=== PATIENT | male | born 1950 | race Caucasian/White ===

== ENCOUNTER → 2024-10-29 | Day surgery (SDC) | payer MEDICARE, BC ==
[2024-10-29] VITALS (11 sets, daily range): BP systolic 122–183; BP diastolic 59–84; PULSE 51–66; RESP 14–16; TEMP 98.1; O2SAT 92–96
[~2024-10-29] VITALS: Ht 167.6 cm; Wt 78.8 kg
[~2024-10-29] MED LIST: ATOR-2 PO; ATOR40TA PO; CHOL200077 PO; EZET10TA48 PO; HYDROcodone/acetaminophen 10/325mg tab PO PRN; HYDROcodone/acetaminophen 5mg/325mg tablet PO PRN; LIDOcaine 1% 30ml preserv. free vial ONE; LOP25T PO; METO-384 PO; fentaNYL/PF 50MCG/1 ML 2ML syringe ONE; heparin 1,000unit/ml 10ml vial 10 ML ONE; iohexol 350 MG/ML 50ML vial IV ONE; iohexol 350MG/ML 100ml bottle IV ONE; midazolam 1 mg/ML 2ml injection ONE; ondansetron/PF 4mg/2ml inj IV PRN; proCHLORperazine 10 MG/2 ml inj IV PRN; protamine sulfate 10mg/ml inj. ONE
[2024-10-29 10:21] LABS: PROTHROMBIN TIME 10.1 SECONDS (9.0-12.0)
[2024-10-29 10:23] LABS: ALBUMIN 3.9 G/DL (3.4-5.0); ANION GAP 9 (8-16); BASOPHILS # (AUTO) 0.1 X10'3 (0-0.2); BASOPHILS % (AUTO) 0.9 % (0-1); BLOOD UREA NITROGEN 10 MG/DL (7-18); BUN/CREATININE RATIO 14.9 (10.0-20.0); CALCIUM 8.9 MG/DL (8.5-10.1); CHLORIDE 106 MMOL/L (99-107); CREATININE 0.67 MG/DL (0.60-1.10); EOSINOPHILS # (AUTO) 0.3 X10'3 (0-0.9); EOSINOPHILS % (AUTO) 3.5 % (0-6); GLUCOSE 96 MG/DL (70-104); HEMATOCRIT 50.1 % (42.0-52.0); HEMOGLOBIN 16.9 g/dl (14.0-17.9); LYMPHOCYTES # (AUTO) 2.6 X10'3 (1.1-4.8); LYMPHOCYTES % (AUTO) 28.9 % (21-51); MEAN CORPUSCULAR HEMOGLOBIN 30.1 PG (27.0-31.0); MEAN CORPUSCULAR HGB CONC 33.7 g/dL (33.0-36.5); MEAN CORPUSCULAR VOLUME 89.2 FL (78-98); MEAN PLATELET VOLUME 9.4 FL (7.4-10.4); MONOCYTES # (AUTO) 0.8 X10'3 (0-0.9); MONOCYTES % (AUTO) 9.5 % (2-12); NEUTROPHILS # (AUTO) 5.1 X10'3 (1.8-7.7); NEUTROPHILS % (AUTO) 57.2 % (42-75); PLATELET COUNT 293 X10'3 (140-440); RED BLOOD COUNT 5.61 X10'6 (4.70-6.10); RED CELL DISTRIBUTION WIDTH 14.8 % (11.5-14.5); SODIUM 143 MMOL/L (135-145); TOTAL CARBON DIOXIDE 28.3 MMOL/L (24-32); WHITE BLOOD COUNT 8.8 X10'3 (4.5-11.0); eCRCL 86 ML/MIN; eGFR > 90 ML/MIN
[2024-10-29] MEDS: normal saline 1,000 ML IV SCH (11:07)
[2024-10-29] MEDS: sodium bicarbonate 1meq/ml syr 150 ML in dextrose 5%-water 1,000 ML IV ONE (11:08)
[2024-10-29] MEDS: diphenhydrAMINE 25mg capsule PO PRN (11:09)
--- NOTE | 2024-10-29 12:44 | ELECTROCARDIOGRAPH REPORT ---
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 Galdino Doss Measurements Intervals [place] Rate: 50 P: 54 UT: 184 QRS: 81 QRSD: 111 T: 23 QT: 449 QTc: 410 Interpretive Statements Atrial-paced complexes Borderline right axis deviation Electronically Signed On 10-29-2024 18:52:[address] Galdino Doss Please click the below link to view image of tracing.
--- NOTE | 2024-10-29 16:21 | CARDIOLOGY REPORT ---
DATE OF SERVICE: 10/29/2024 DICTATING PHYSICIAN: GARRETT MITCHELL DO CARDIAC CATHETERIZATION REPORT laboratory tester study number is [id number] [facility]. REFERRING PHYSICIAN: Christelle Núñez MD. CLINICAL HISTORY: This 74-year-old man has had previous 2-vessel CABG, receiving a CARTAGENA to the mid LAD and a saphenous vein graft to the right coronary. He has been experiencing angina, not responding to medical therapy, prompting this cardiac catheterization. PROCEDURES PERFORMED: * Left heart catheterization. * Left ventriculography. * Selective coronary arteriography. * Selective opacification of left internal mammary graft. * Selective opacification of saphenous vein graft. * Attempted right percutaneous coronary intervention. * Percutaneous arteriotomy closure (Perclose). * 60 minutes conscious sedation supervision DESCRIPTION OF PROCEDURE: The patient was sedated with fentanyl and Versed. He was then prepared and draped in the usual manner. The right inguinal area was infiltrated with 1% lidocaine. Using a micropuncture set and a Seldinger technique, a 7-Malawian sheath was placed in the common femoral artery. 3000 units of heparin were given. Left heart catheterization and left ventriculography were performed using a 6-Malawian pigtail catheter. Coronary arteriography was performed using 6-Malawian #4 left and right Tracy catheter. Left internal mammary graft opacification was accomplished using a 6-Malawian #4 right Tracy catheter. The saphenous vein graft previously placed to the distal right coronary was opacified using a 6-Malawian AR mod catheter. The 7-Malawian sheath was exchanged for an 8-Malawian sheath. An additional 7000 units of heparin were given. The right coronary was engaged with an 8-Malawian side-hold AL1 guiding catheter. Using first a Whisper wire and later a Choice PT2 guidewire, there was an attempt to pass a guidewire down through multiple high-grade stenoses in the right coronary; however, a lesion in the mid vessel was extremely tight and the wire would not pass this location, but appeared to go into a subintimal location. After multiple attempts with both wires, a decision was made to not pursue the problem any longer. The patient was completely stable through the procedure given the fact that he has got collateralization of the distal right coronary by way of both the circumflex and the grafted LAD. RESULTS: HEMODYNAMIC DATA: The left ventricular end-diastolic pressure was 12 mmHg. There was no gradient across the aortic valve. LEFT VENTRICULOGRAM: The left ventriculogram was technically adequate. Post PVC, the ejection fraction appeared to be 45%. The posterobasal and inferior wall segments were hypokinetic post PVC. CORONARY ARTERIOGRAPHY: The coronary arteriograms are technically satisfactory. The patient had a right dominant system. LEFT MAIN CORONARY ARTERY: The left main was a large unobstructed vessel, trifurcating into left anterior descending, intermediate, and circumflex coronary artery. LEFT ANTERIOR DESCENDING CORONARY ARTERY: The LAD was a medium-sized vessel with a 70% stenosis proximally with a similar stenosis just after the takeoff of the first major septal genetic counsellor. The mid LAD exhibited competitive flow with a patent CARTAGENA graft. INTERMEDIATE ARTERY: The intermediate was a small unobstructed vessel. CIRCUMFLEX CORONARY ARTERY: The circumflex was a large vessel proximally. There was a large first obtuse marginal and a medium-sized second obtuse marginal. The origin of the circumflex appeared to be narrowed by about 50%. Just after the takeoff of the first obtuse marginal, there was a 50% stenosis, followed by a 90% stenosis at the origin of the second obtuse marginal. RIGHT CORONARY ARTERY: The right coronary was a diffusely diseased vessel. There was 50% proximal stenosis. Further downstream, there was a 95% stenosis. Clearly in the mid vessel, there was a 90% stenosis and distally, but proximal to the posterior descending branch, there was another 90% stenosis. The distal right coronary was composed of a posterior descending branch and at least one small posterolateral branch. Bypass graft saphenous vein graft to the right coronary was occluded proximally. The CARTAGENA to mid LAD was patent and unobstructed, both in the graft and the hopland vessel beyond the distal anastomosis. CONCLUSIONS: 1. Severe obstructive coronary artery disease manifested as: A. At least a 70% proximal and mid LAD. B. At least 50% ostial narrowing of the circumflex with a 90% stenosis affecting the second obtuse marginal branch. The distal LCX provides collaterals to the distal right coronary. C. Multiple very high-grade stenoses in the proximal, mid, and distal right coronary. The distal right coronary, however, receives collaterals from the circumflex coronary and a CARTAGENA grafted distal LAD. 2. Bypass graft status as follows: A. Patent and unobstructed CARTAGENA to mid LAD. B. Occluded saphenous vein graft to right coronary artery. C. Left ventricular function appears to be reasonably good. There is posterobasal and inferior hypokinesis and the LVEF is approximately 45%. 3. Attempt at reopening the multiple lesions in the right coronary were unsuccessful given the difficulty in passing a very high-grade stenosis in the proximal vessel. PLAN: Elective CABG. GARRETT MITCHELL DO TID: [id number] RECEIPT: [id number] DARCY MTDD
--- NOTE | 2024-10-29 16:23 | CONSULTATION REPORT ---
Cardiac Consultation Report Providers to CC ~ Progress Note: Mr. Jorge is a very nice 74-year-old gentleman with a known history of coronary artery disease status post coronary artery bypass grafting x2 back in 2008. At that time he had a left internal mammary artery graft placed to the LAD with a vein graft to the distal right coronary artery. 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 Upon his recent visit with Dr. Doss's four check he was noted to have an abnormal stress test. This revealed the presence of inferior wall ischemia with reversibility. He therefore underwent left heart catheterization today. This reveals a patent and excellent graft to the LAD with occlusion of the vein graft to the RCA. The RCA is heavily diseased and but does have some collateralization. An attempt was made to stent the right but unfortunately a wire could not be passed. We have been asked to see him for possible redo coronary artery bypass grafting. The patient denies anginal or pleuritic chest pain. He has no shortness of breath or exertional dyspnea, PND or orthopnea. He does describe a occasional heartburn like sensation in his chest. This is not clearly associated with exertion. Risk factors for atherosclerosis include family history as well as fairly longstanding and ongoing tobacco use. Central Line/PICC still needed: N\A Black Indications Met/Not Met: F/C Indications Not Met MRSA Education MRSA Education Provided to pt: N/A Objective Vitals Vital Signs Date Time Temp Pulse Resp B/P (MAP) Pulse Ox O2 Delivery O2 Flow Rate FiO2 10/29/24 14:12 62 16 183/81 92 Room Air 10/29/24 10:15 98.1 Lab Results: 10/29/24 0955 10/29/24 0955 Objective His HEENT is benign. No facial asymmetry. Dentition is in fair repair. Neck is supple with midline trachea. Carotids are 2+ without bruits. He has no JVD sitting upright. Chest shows well-healed sternotomy scar was stable sternum. Cardiac exam reveals a regular rate and rhythm without murmur, S3 or S4. No rubs present. His lungs were clear with good aeration throughout. No wheezes, rales or rhonchi. Abdomen was soft and nontender normoactive bowel sounds. No masses or organomegaly noted. His extremities showed the absence of cyanosis, clubbing or edema. 2+ radial and posterior tibial pulses bilaterally. Coagulation Studies Laboratory Tests Test 10/29/24 09:55 Prothrombin Time 10.1 SECONDS (9.0-12.0) INR International Normalized Ratio 1.0 INR Coagulation Comments Problem\Assessment\Plan Additional Plan Mr. Jorge is a very nice 74-year-old gentleman who has what was essentially single-vessel coronary artery disease. It is unclear whether or not he asymptomatic at this time. 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 We have recommended that he undergo coronary bypass grafting placing the radial artery to the distal right coronary artery. This would be done off pump via a redo sternotomy. The indications alternatives to surgery as well as the risks, benefits and possible complications associated with redo coronary artery bypass grafting in the setting were discussed at some length with the patient and his . They stated that they understood and accepted these and would like some time to think about it. All of their questions have been answered to their stated satisfaction. At this point I will call the patient in 2-3 days to see if he has come to a decision. Surgery would be done as early as next Tuesday. Visit Coding Cardiology Date of Service: October 29, 2024 Billing Provider: EDMAR SHETH III, MD Cardiology Evaluation and Maddi: [id number] INP/OBS CARE (High) EDMAR SHETH III, MD October 29, 2024 16:22
== END | disposition home or self-care (01) ==
LOC: SSTAY O 09:14
PROVIDERS: ATTEND Internal Medicine Cardiovascular Disease
DX: I25.118 Atherosclerotic heart disease of native coronary artery with other forms of angina pectoris (principal); I25.798 Atherosclerosis of other coronary artery bypass graft(s) with other forms of angina pectoris; E78.5 Hyperlipidemia, unspecified; I25.2 Old myocardial infarction; I10 Essential (primary) hypertension; Z82.49 Family history of ischemic heart disease and other diseases of the circulatory system; Z98.890 Other specified postprocedural states; Z79.82 Long term (current) use of aspirin; Z79.899 Other long term (current) drug therapy
CPT/HCPCS: 36415; 80048; 83735; 85025; 85610; 93005; 93459; 99152; 99153; A6258; C1725; C1760; C1769; C1887; C1894; C9607; J1644; J2003; J2250; J2720; J3010; J3490; J7030; J7070; Q0163; Q9967; Z7610

== ENCOUNTER 2024-11-05 05:40 | Inpatient (IN) | payer MEDICARE, BC ==
[2024-11-02 12:57] VITALS: PULSE 54; RESP 16; O2SAT 96
[2024-11-02 13:46] LABS: BILIRUBIN,URINE NEGATIVE (Neg); CLARITY,URINE CLEAR (Clear); COLOR,URINE YELLOW (Yellow); GLUCOSE, URINE NEGATIVE (Neg); KETONES,URINE NEGATIVE (Neg); LEUKOCYTE ESTERASE ,URINE NEGATIVE (Neg); NITRITES, URINE NEGATIVE (Neg); OCCULT BLOOD,URINE MODERATE (Neg); PROTEIN,URINE NEGATIVE (Neg)
[2024-11-02 13:50] LABS: UA COLLECTION TYPE NON-SPECIFIED
[2024-11-02 13:52] LABS: BACTERIA,URINE NONE SEEN /HPF (Neg); MUCUS STRANDS NONE SEEN /LPF (Neg); SQUAMOUS EPITHELIAL CELL,UR FEW /LPF (FEW); WBC,URINE 0-4 /HPF (0-4)
[2024-11-02 13:55] LABS: BASOPHILS # (AUTO) 0.1 X10'3 (0-0.2); BASOPHILS % (AUTO) 0.9 % (0-1); EOSINOPHILS # (AUTO) 0.5 X10'3 (0-0.9); EOSINOPHILS % (AUTO) 4.8 % (0-6); LYMPHOCYTES # (AUTO) 2.8 X10'3 (1.1-4.8); LYMPHOCYTES % (AUTO) 29.5 % (21-51); MEAN CORPUSCULAR HEMOGLOBIN 30.6 PG (27.0-31.0); MEAN CORPUSCULAR HGB CONC 34.5 g/dL (33.0-36.5); MEAN CORPUSCULAR VOLUME 88.5 FL (78-98); MEAN PLATELET VOLUME 9.1 FL (7.4-10.4); MONOCYTES # (AUTO) 0.9 X10'3 (0-0.9); MONOCYTES % (AUTO) 9.5 % (2-12); NEUTROPHILS # (AUTO) 5.3 X10'3 (1.8-7.7); NEUTROPHILS % (AUTO) 55.3 % (42-75); PRE OP HEMATOCRIT 45.9 % (42.0-52.0); PRE OP HEMOGLOBIN 15.9 g/dL (14.0-17.9); PRE OP PLATELET COUNT 282 X10'3 (140-440); PRE OP WHITE BLOOD COUNT 9.6 10'3 (4.8-10.8); RED BLOOD COUNT 5.19 X10'6 (4.70-6.10); RED CELL DISTRIBUTION WIDTH 14.5 % (11.5-14.5)
--- NOTE | 2024-11-02 13:59 | ELECTROCARDIOGRAPH REPORT ---
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 ARELY Henry Measurements Intervals [place] Rate: 51 P: 69 [place]: 173 QRS: 87 QRSD: 108 T: 55 QT: 450 QTc: 415 Interpretive Statements Sinus bradycardia Borderline right axis deviation Electronically Signed On 11-03-2024 15:06:[address] ARELY Henry Please click the below link to view image of tracing.
[2024-11-02 14:01] LABS: PRE OP PROTIME 10.6 SECONDS (9.0-12.0)
[2024-11-02 14:02] LABS: ALBUMIN 3.5 G/DL (3.4-5.0); ALBUMIN/GLOBULIN RATIO 1.1 (1.1-1.5); ALKALINE PHOSPHATASE 95 IU/L (46-116); BLOOD UREA NITROGEN 18 MG/DL (7-18); BUN/CREATININE RATIO 22.2 (10.0-20.0); CALCIUM 8.4 MG/DL (8.5-10.1); CHLORIDE 105 MMOL/L (99-107); CREATININE 0.81 MG/DL (0.60-1.10); PRE OP ALT 28 U/L (30-65); PRE OP ANION GAP 6 (8-16); PRE OP AST 19 U/L (10-37); PRE OP BILIRUB, TOTAL 0.9 MG/DL (0.0-1.0); PRE OP GLUCOSE 87 MG/DL (70-104); PRE OP POTASSIUM 4.3 MMOL/L (3.4-5.1); PRE OP SODIUM 140 MMOL/L (135-145); TOTAL CARBON DIOXIDE 28.7 MMOL/L (24-32); TOTAL PROTEIN 6.8 G/DL (6.4-8.2); eGFR > 90 ML/MIN
[2024-11-02 14:03] LABS: HEMOGLOBIN A1C 5.7 % (4.5-6.2)
--- NOTE | 2024-11-02 14:46 | VASCULAR REPORT ---
VASC VL VENOUS VL VENOUS Clinical History: Preop vein mapping Comparison: None Technique: Grayscale images of the bilateral lower extremities were obtained. The bilateral greater s aphenous veins were measured and marked on both legs. Findings: In the right lower extremity, the greater saphenous vein is patent measuring 6.2 mm in the proximal t high, 3.1 mm in mid thigh, 3.1 mm in distal thigh, 3 mm in the proximal leg, 2.5 mm in mid leg and 2.3 mm in distal leg. In the left lower extremity, the greater saphenous vein is patent measuring 4 mm in the proximal thig h, nonvisualized in mid thigh, nonvisualized in distal thigh, 1.3 mm in the proximal leg, 1.4 mm in mid leg and 2.1 mm in distal leg. Impression: The bilateral greater saphenous veins are patent. Measurements as above.
--- NOTE | 2024-11-02 14:57 | RADIOLOGY REPORT ---
EXAM: DI CHEST,TWO VIEWS CLINICAL HISTORY: Pain COMPARISON: None TECHNIQUE: Frontal and lateral view of the chest was obtained FINDINGS: Lines and Tubes: None Lungs: No focal consolidation. Pleura: No effusion. No pneumothorax. Cardiomediastinal contours: Unremarkable Bones: No acute osseous abnormality. IMPRESSION: No acute cardiopulmonary disease.
--- NOTE | 2024-11-02 15:10 | PROCEDURE NOTE - Respiratory ---
Procedure Note-Respiratory Providers to CC Copies To 1: GARRETT MITCHELL DO; EDMAR SHETH III, MD Procedure Name: This is a spirometry study dated November 02, 2024. There was also a room air blood gas obtained from this patient on the same date. Spirometry measurements: Both the forced vital capacity and the FEV1 are in the normal range. The FEV1 ratio however is slightly diminished. Some of the flow rates are slightly diminished. Bronchodilator was not administered as part of the study. Conclusion: This study shows mild abnormality. There is evidence for obstructive ventilatory defect in the mild category. 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 It is recommended that this patient completely abstain from cigarette smoking. We have no previous studies for comparison. A blood gas was drawn from this patient while the patient was breathing room air. The blood pH is normal. The pCO2 is normal. The room air PO2 level is slightly diminished at 77 mmHg. KEHINDE MORENO MD November 02, 2024 15:10
[2024-11-02 15:34] LABS: ABG BASE EXCESS 1.7 mmol/L (-2.0-3.0); ABG HCO3 26.4 mmol/L (21.0-28.0); ABG OXYGEN SATURATION 95.4 % (94.0-98.0); ABG PCO2 (T) 41.8 mmHg (35.0-48.0); ABG PH (T) 7.419 (7.350-7.450); ABG PO2 (T) 77.4 mmHg (83.0-108.0); ALLEN'S TEST POSITIVE; FCOHb 0.5 % (0.5-1.5); FHHb 4.6 % (0.0-5.0); FMetHb 0.3 % (0.0-1.5); FO2Hb 94.6 % (94.0-98.0); MODE ROOM AIR; TOTAL HEMOGLOBIN 16.5 G/dl (13.5-17.5)
--- NOTE | 2024-11-02 16:45 | VASCULAR REPORT ---
PROCEDURE: [facility] CAROTID 11/02/2024 01:24 PM INDICATION: Preoperative evaluation prior to CABG. COMPARISON: None TECHNIQUE: Real-time grayscale and color Doppler images of the neck arteries were obtained with spect ral analysis performed. FINDINGS: RIGHT: No significant atherosclerotic plaque identified in the carotid. Normal spectral waveforms are seen. ICA peak systolic velocity: 84 cm/s ICA end-diastolic velocity: 21 cm/s ICA/CCA ratios: 1.3 LEFT: No significant atherosclerotic plaque identified in the carotid. Normal spectral waveforms are seen. ICA peak systolic velocity: 73 cm/s ICA end-diastolic velocity: 21 cm/s ICA/CCA ratios: 1.1 VERTEBRAL ARTERIES: Normal antegrade flow is seen bilaterally. Normal spectral waveforms. IMPRESSION: 1. No hemodynamically significant carotid artery stenosis identified bilaterally. Reference: Radiology 2003; 229:340-346 Normal ICA PSV is <125 cm/sec and no plaque or intimal thickening is visible sonographically addition al criteria include ICA/CCA PSV ratio <2.0 and ICA EDV <40 cm/sec <50% ICA stenosis ICA PSV is <125 cm/sec and plaque or intimal thickening is visible sonographically additional criteria include ICA/CCA PSV ratio <2.0 and ICA EDV <40 cm/sec 50-69% ICA stenosis ICA PSV is 125-230 cm/sec and plaque is visible sonographically additional criter ia include ICA/CCA PSV ratio of 2.0-4.0 and ICA EDV of 40-100 cm/sec 70% ICA stenosis but less than near occlusion ICA PSV is >230 cm/sec and visible plaque and luminal narrowing are seen at garcia-scale and color Doppler ultrasound (the higher the Doppler parameters lie above the threshold of 230 cm/sec, the greater the likelihood of severe disease) additional criteria include ICA/CCA PSV ratio >4 and ICA EDV >100 cm/sec
[2024-11-05] VITALS (23 sets, daily range): BP systolic 99–189; BP diastolic 44–90; PULSE 41–87; RESP 12–31; TEMP 97.2; O2SAT 92–100
[~2024-11-05] VITALS: Ht 167.6 cm; Wt 77.1 kg
[2024-11-05] MEDS: metoprolol tartrate 12.5mg (1/2 tablet) PO ONE (05:30)
[2024-11-05] MEDS: ceFAZolin 2gm in dextrose, iso 50 ML IV ONE (05:30)
[2024-11-05] MEDS: DOCUMENT DATE & TIME OF BETA-BLOCKER PO ONE (05:30)
[~2024-11-05 05:40] MED LIST changes: -ATOR40TA PO; -CHOL200077 PO; -HYDROcodone/acetaminophen 10/325mg tab PO PRN; -HYDROcodone/acetaminophen 5mg/325mg tablet PO PRN; +Insulin Reg/NS 100units/100mL 100 ML IV SCH; -LIDOcaine 1% 30ml preserv. free vial ONE; -LOP25T PO; +dextrose 50%-water 50ml dispensing syringe IV PRN; -fentaNYL/PF 50MCG/1 ML 2ML syringe ONE; -heparin 1,000unit/ml 10ml vial 10 ML ONE; +insulin glargine (Lantus) pen - multi-dose SQ PRN; -iohexol 350 MG/ML 50ML vial IV ONE; -iohexol 350MG/ML 100ml bottle IV ONE; -midazolam 1 mg/ML 2ml injection ONE; -ondansetron/PF 4mg/2ml inj IV PRN; -proCHLORperazine 10 MG/2 ml inj IV PRN; -protamine sulfate 10mg/ml inj. ONE
[2024-11-05] MEDS ORDERED: vancomycin 1,000mg inj ONE (06:38)
[2024-11-05] MEDS ORDERED: epiNEPHrine 1 mg/ml inj ONE (06:38)
[2024-11-05] MEDS ORDERED: ceFAZolin 1000mg inj ONE (06:38)
[2024-11-05] MEDS ORDERED: BUPIVAcaine 0.5% inj/PF 30 ML ONE (06:38)
[2024-11-05] MEDS ORDERED: heparin 10,000 units/1 ML INJ ONE (06:38)
[2024-11-05] MEDS: vancomycin 1,000mg inj IVT ONE (07:00)
[2024-11-05] MEDS: mupirocin 2% nasal ointment 1gm UD NS ONE (07:03)
[2024-11-05] MEDS: famotidine 20mg tablet PO ONE (07:03)
[2024-11-05] MEDS: VANCOMYCIN/H2O 1.5g/300mL PB 300 ML IV ONE (07:04)
[2024-11-05] MEDS: ringers solution, lacted 1,000 ML IV SCH (07:04)
--- NOTE | 2024-11-05 07:51 | VASCULAR REPORT ---
Bilateral Upper Extremity Arterial Duplex Clinical History: Preop mapping Comparison: None Technique: Duplex Doppler evaluation including color Doppler and spectral/pulsed waveform analysis of the upper extremity arteries was performed. Findings: RIGHT: Peak systolic velocities are as follows: Prox Radial 69cm/s, 3.7 mm Distal Radial 67cm/s, 3.0 mm Incomplete palmar arch. The waveforms are multiphasic. . LEFT: Peak systolic velocities are as follows: Prox Radial 48cm/s, 3.4 mm Distal Radial 49.0cm/s, 2.5 mm Incomplete palmar arch. The waveforms are monophasic . IMPRESSION: Patent radial artery, bilaterally. Multiphasic flow throughout the right radial artery. Left radial artery demonstrates monophasic waveforms suggesting possible proximal obstruction. Incomplete palmar arches, bilaterally. REFERENCE VALUES, [facility]) vascular Imaging Lab Criteria: Peak systolic velocity rang es (in cm/sec) are as follows: <150 cm/s - <20 % stenosis 150-200 cm/s - 20-49% stenosis 200-300 cm/s - 50-75% stenosis >300 cm/s -> 75% stenosis
[2024-11-05] MEDS ORDERED: MIDAZolam 1 MG/ML 5ML VIAL ONE (07:58)
[2024-11-05] MEDS ORDERED: SUfentanil 50mcg/ml 1ml amp IV ONE (07:58)
[2024-11-05] MEDS ORDERED: propofol inj 20 ML IV ONE (08:01)
[2024-11-05] MEDS ORDERED: rocuronium 10mg/ml inj IV ONE ×2 (08:01)
[2024-11-05] MEDS: midazolam 1 mg/ML 2ml injection IV ONE (08:10)
[2024-11-05 08:47] LABS: ABG BASE EXCESS 0.1 mmol/L (-2.0-3.0); ABG HCO3 24.7 mmol/L (21.0-28.0); ABG OXYGEN SATURATION 99.4 % (94.0-98.0); ABG PH 7.408 (7.350-7.450); ABG PO2 232.1 mmHg (83.0-108.0); CL (ABG) 103 mmol/L (98-107); FCOHb 0.4 % (0.5-1.5); FHHb 0.6 % (0.0-5.0); FMetHb 0.3 % (0.0-1.5); FO2Hb 98.7 % (94.0-98.0); GLUCOSE (ABG) 95 mg/dl (65-95); IONIZED CA (ABG) 1.16 mmol/L (1.15-1.33); K (ABG) 4.6 mmol/L (3.40-4.50); TOTAL HEMOGLOBIN 15.2 G/dl (13.5-17.5)
[2024-11-05] MEDS ORDERED: sevoflurane 250ml liquid IH ONE (09:04)
[2024-11-05 09:46] LABS: ABG BASE EXCESS VENOUS -6.8 mmol/L (-2.0-3.0); ABG HCO3 VENOUS 19.5 mmol/L (22.0-29.0); ABG OXYGEN SATURATION VENOUS 84.6 % (60.0-85.0); ABG PCO2 VENOUS 41.7 mmHg (38.0-54.0); ABG PH (VENOUS) 7.287 (7.320-7.430); ABG PO2 VENOUS 51.4 mmHg (23.0-48.0); CL (ABG) 102 mmol/L (98-107); FCOHb VENOUS 0.5 % (0.5-1.5); FHHb VENOUS 15.3 %; FMetHb VENOUS 0.3 % (0.5-1.5); FO2Hb VENOUS 83.9 % (0-80.0); GLUCOSE (ABG) 99 mg/dl (65-95); IONIZED CA (ABG) 1.17 mmol/L (1.15-1.33); K (ABG) 4.8 mmol/L (3.40-4.50); TOTAL HEMOGLOBIN 15.1 G/dl (13.5-17.5)
[2024-11-05] MEDS ORDERED: metoclopramide 5 mg/ml inj IV PRN (10:25)
[2024-11-05] MEDS ORDERED: bisacodyl 10mg suppository rectal RC PRN (10:25)
[2024-11-05] MEDS ORDERED: potassium Cl 20 mEq SR tablet PO PRN (10:25)
[2024-11-05] MEDS ORDERED: potassium Cl 40MEQ/270ML bag 250 ML IV PRN (10:25)
[2024-11-05] MEDS ORDERED: ondansetron/PF 4mg/2ml inj IV PRN (10:25)
[2024-11-05] MEDS ORDERED: potassium CL 10mEq/100ml bag 100 ML IV PRN (10:25)
[2024-11-05] MEDS ORDERED: sodium phosphate inj. 15 MMOL in dextrose 5%-water 250 ML IV PRN (10:25)
[2024-11-05] MEDS ORDERED: insulin glargine (Lantus) pen - multi-dose SQ PRN (10:25)
[2024-11-05] MEDS ORDERED: dextrose 50%-water 50ml dispensing syringe IV PRN (10:25)
[2024-11-05] MEDS ORDERED: acetaminophen 325mg tablet PO PRN ×2 (10:25)
[2024-11-05] MEDS ORDERED: sodium phosphate inj. 30 MMOL in dextrose 5%-water 250 ML IV PRN (10:25)
[2024-11-05] MEDS ORDERED: mineral oil 133ml enema RC PRN (10:25)
[2024-11-05] MEDS ORDERED: potassium Cl 40MEQ/1/2NS 520ml 520 ML IV PRN (10:25)
[2024-11-05 10:32] LABS: ACT @ 1.70 U 310 SEC (193-297); ACT @ 2.84 U 507 SEC (260-420); BASELINE ACT 145 SEC (101-148); PATIENT WEIGHT 80.0k KG
--- NOTE | 2024-11-05 10:34 | OPERATIVE REPORT ---
Operative Report Operative Report Cardiovascular surgery operative report 05 Nov 2024 Preoperative diagnosis: Severe single-vessel coronary disease status post prior coronary artery bypass grafting, medically refractory angina Postop diagnosis: Same Procedure: Redo coronary artery bypass grafting x1 placing the right internal mammary artery to the distal right coronary artery, off pump Surgeon: Dr. David Jane assistants: Dr. Rashad Elizabeth and Russell Alvarez PA-C Anesthesia: General via endotracheal tube Dr. Machado Complications: None EBL: 200 mL Procedure: The patient was taken to the operating room placed in supine position. Following the induction of general oral endotracheal anesthesia and the placement of appropriate lines the chest, abdomen and bilateral lower extre mities were prepped and draped sterilely. The previous median sternotomy scar was excised and the sternal wires removed. The xiphoid was excised and a median sternotomy performed in standard fashion. The right pleural space was widely opened allowing the right internal mammary artery to be dissected free from the anterior chest wall. This was done in a skeletonized fashion. The patient was systemically heparinized and after 3 minutes the MATT was divided at the diaphragm. The ascending aorta right atrium and inferior wall of the heart were dissected free from the surrounding pericardium. No attempt was made to expose the left side of the heart which contained the patent left internal mammary graft. A slit was cut in the right mid pericardium to allow the right MATT to lie medial to the lung without tension. It was cut to length and distal end was spatulated. It was then anastomosed in end-to-side fashion of the distal right coronary artery. This was accomplished with a running seven 0 Prolene, probing prior to tying the suture line to ensure patency. An epicardial stabilizer was utilized to facilitate the distal anastomosis. The bulldog clamps were removed from the MATT pedicle. There was excellent diastolic flow. The patient was therefore given intravenous protamine solution to reverse heparinization and careful hemostasis was achieved throughout the mediastinum. A flow probe measured flow through the graft at 70 mL/minute with a PI of less than one a 36 Palestinian straight chest tube was placed anterior to the mediastinum. This was secured to skin with 1. Silk. The chest was then closed by treating the sternal edges with the vancomycin paste. They were then reapproximated in the midline with interrupted vzubzh-ko-iprccl of 7. Stainless steel wire. The midline fascia, subcutaneous tissue and skin were closed in layers. Sterile dressings were applied and the chest was attached to water-seal. The patient is then returned to the ICU in critical but stable condition, having tolerated the p rocedure satisfactorily. There were no complications. Sponge, needle and instrument counts were correct x2 at the end of the case. Russell Alvarez PA-C was present for and assisted throughout the entire procedure. DAVID JANE III, MD November 05, 2024 10:34
--- NOTE | 2024-11-05 11:00 | ELECTROCARDIOGRAPH REPORT ---
[facility] Test Date: 2024-11-05 Test Time: 10:58:23 Pat Name: COSME GUADALUPE Department: [facility] Patient ID: [facility]-[id number] Room: 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 ARELY Henry Measurements Intervals [place] Rate: 48 P: 52 [place]: 195 QRS: 72 QRSD: 112 T: 47 QT: 556 QTc: 497 Interpretive Statements Sinus bradycardia Borderline intraventricular conduction delay Borderline prolonged QT interval Electronically Signed On 11-05-2024 19:14:[address] ARELY Henry Please click the below link to view image of tracing.
[2024-11-05 11:09] LABS: BASOPHILS # (AUTO) 0.1 X10'3 (0-0.2); BASOPHILS % (AUTO) 0.4 % (0-1); EOSINOPHILS # (AUTO) 0.3 X10'3 (0-0.9); EOSINOPHILS % (AUTO) 2.7 % (0-6); HEMATOCRIT 37.6 % (42.0-52.0); HEMOGLOBIN 12.9 g/dl (14.0-17.9); LYMPHOCYTES # (AUTO) 2.4 X10'3 (1.1-4.8); LYMPHOCYTES % (AUTO) 18.5 % (21-51); MEAN CORPUSCULAR HEMOGLOBIN 30.2 PG (27.0-31.0); MEAN CORPUSCULAR HGB CONC 34.3 g/dL (33.0-36.5); MEAN CORPUSCULAR VOLUME 88.1 FL (78-98); MEAN PLATELET VOLUME 8.9 FL (7.4-10.4); MONOCYTES # (AUTO) 0.7 X10'3 (0-0.9); MONOCYTES % (AUTO) 5.4 % (2-12); NEUTROPHILS # (AUTO) 9.3 X10'3 (1.8-7.7); PLATELET COUNT 152 X10'3 (140-440); RED BLOOD COUNT 4.27 X10'6 (4.70-6.10); RED CELL DISTRIBUTION WIDTH 14.5 % (11.5-14.5); WHITE BLOOD COUNT 12.7 X10'3 (4.5-11.0)
[2024-11-05 11:18] LABS: ABG BASE EXCESS -1.8 mmol/L (-2.0-3.0); ABG HCO3 21.8 mmol/L (21.0-28.0); ABG OXYGEN SATURATION 99.8 % (94.0-98.0); ABG PCO2 (T) 31.2 mmHg (35.0-48.0); ABG PH (T) 7.455 (7.350-7.450); ABG PO2 (T) 262.5 mmHg (83.0-108.0); FCOHb 0.7 % (0.5-1.5); FHHb 0.2 % (0.0-5.0); FMetHb 0.3 % (0.0-1.5); FO2Hb 98.8 % (94.0-98.0); MODE VENT - SIMV; PATIENT TEMPERATURE 35.2; PEEP 5 cm H2O; RESPIRATORY RATE 12 b/min; TIDAL VOLUME 500 mL; TOTAL HEMOGLOBIN 13.6 G/dl (13.5-17.5)
[2024-11-05] MEDS: morphine 4 MG/ML inj SYRINge IV PRN (11:19)
--- NOTE | 2024-11-05 11:19 | RADIOLOGY REPORT ---
DI CHEST,SINGLE VIEW, HISTORY: POST OP COMPARISON: None None TECHNICAL DATA: 1 view of the chest was obtained. FINDINGS: Lines and tubes: ET in the mid thoracic trachea, NG in stomach. SG in right PA, right CVC in SVC. Cardiomediastinal silhouette: normal Pulmonary vasculature: normal Lung expansion: normal Lung airspace: normal Lung interstitium: normal Pleura: Trace left pleural effusion. Pneumothorax: no Bones: Unremarkable Other: no IMPRESSION: ET in the mid thoracic trachea, NG in stomach. SG in right PA, right CVC in SVC.
[2024-11-05] MEDS: niCARDipine-NS 40mg/200ml IVPB 200 ML IV PRN (11:20)
[2024-11-05 11:21] LABS: APTT 31 SECONDS (22-32); INR 1.3 INR; PROTHROMBIN TIME 13.2 SECONDS (9.0-12.0)
[2024-11-05] MEDS: sodium chloride 0.45% 1,000 ML IV SCH (11:21)
[2024-11-05] MEDS: nitroGLYCERIN-Tridil 50MG/D5W 250 ML IV SCH (11:21)
[2024-11-05 11:22] LABS: ALANINE AMINOTRANSFERASE 19 U/L (12-78); ALBUMIN 3.2 G/DL (3.4-5.0); ALBUMIN/GLOBULIN RATIO 1.7 (1.1-1.5); ALKALINE PHOSPHATASE 60 IU/L (46-116); ANION GAP 8 (8-16); ASPARTATE AMINO TRANSFERASE 15 U/L (10-37); BILIRUBIN,TOTAL 0.6 MG/DL (0.1-1.0); BLOOD UREA NITROGEN 14 MG/DL (7-18); BUN/CREATININE RATIO 22.2 (10.0-20.0); CALCIUM 7.9 MG/DL (8.5-10.1); CHLORIDE 106 MMOL/L (99-107); CREATININE 0.63 MG/DL (0.60-1.10); GLUCOSE 110 MG/DL (70-104); MAGNESIUM 1.4 MG/DL (1.5-2.4); PHOSPHORUS 2.4 MG/DL (2.3-4.5); POTASSIUM 4.8 MMOL/L (3.5-5.1); SODIUM 138 MMOL/L (135-145); TOTAL CARBON DIOXIDE 24.4 MMOL/L (24-32); TOTAL PROTEIN 5.1 G/DL (6.4-8.2); eCRCL 91 ML/MIN; eGFR > 90 ML/MIN
[2024-11-05] MEDS: Insulin Reg/NS 100units/100mL 100 ML IV SCH (11:22)
[2024-11-05] MEDS: albumin (Human) 5% 250ml 250 ML IV PRN (11:26)
[2024-11-05] MEDS: magnesium sulf-water 2g/50mL 50 ML IV PRN (11:47)
[2024-11-05] MEDS ORDERED: aminocaproic acid 250 MG/1 ML inj. ONE (13:00)
[2024-11-05] MEDS: magnesium sulf-water 4G/100mL 100 ML IV PRN (13:13)
--- NOTE | 2024-11-05 13:13 | CARDIOLOGY REPORT ---
APPROVED REPORT EXAM: Intraoperative transesophageal 2D, spectral and color flow Doppler echocardiogram. Study conta ins pre- and post-op images. Patient Location: CVOR Blood Pressure: 113 / 54 mmHg Heart Rate: 58 bpm Rhythm: SINUS BRADYCARDIA Indications CORONARY DISEASE - OCCLUDED RCA GRAFT RE-DO CABG X 1 (SVG - RCA) CABG X 2 2009 ( CARTAGENA-LAD, SVG-RCA) ANGEL PROBE PASSED BY: Herrera PETERSON MD Sand Cutting Machine Operator: Soniya Severino DO / WILIAN: Francia SHETH MD Previous echo: LEFT VENTRICLE PRE: Normal LV size and wall thickness. Overall well presrerved systolic function is low normal. Infe rior lateral wall motion abnormality. LVEF is 50-55%. POST: Slightly improved EF: 55% RIGHT VENTRICLE PRE: RV is normal size and function. POST-OP: Unchanged. ATRIA PRE: Left atrium appears mildly dilated. Left atrial appendage is visualized in multiple planes and a ppears normal without debris. Pulmonary vein identified and isolated by 2D and color Doppler. Inciden ivania bubble study, no shunt detected. POST-OP: Unchanged. AORTIC VALVE PRE: Trileaflet AV appears mildly sclerotic without stenosis or insufficiency. POST-OP: Unchanged. MITRAL VALVE PRE: Mild MV annular calcification without stenosis. Mild regurgitation with BP 113/s. POST-OP: Unch anged. TRICUSPID VALVE PRE: TV appears structurally normal with trace regurgitation. POST-OP: Unchanged. PULMONIC VALVE PRE: Normal PV without stenosis, physiologic insufficiency. North-Nasreen catheter in the right heart acr oss the pulmonic valve. POST-OP: Unchanged. GREAT VESSELS PRE: Aortic root, arch, ascending and descending aorta appear normal in size with minimal atheroscler otic debris. POST-OP: Unchanged. PERICARDIUM PRE: Normal pericardium. No effusion. POST-OP: Unchanged.
[2024-11-05 15:02] LABS: ABG BASE EXCESS -2.7 mmol/L (-2.0-3.0); ABG HCO3 21.3 mmol/L (21.0-28.0); ABG OXYGEN SATURATION 98.3 % (94.0-98.0); ABG PCO2 (T) 33.9 mmHg (35.0-48.0); ABG PH (T) 7.415 (7.350-7.450); ABG PO2 (T) 113.1 mmHg (83.0-108.0); FCOHb 0.5 % (0.5-1.5); FHHb 1.7 % (0.0-5.0); FMetHb 0.3 % (0.0-1.5); FO2Hb 97.5 % (94.0-98.0); MODE VENT - CPAP; PATIENT TEMPERATURE 36.5; TOTAL HEMOGLOBIN 12.2 G/dl (13.5-17.5)
[2024-11-05] MEDS: ceFAZolin/D5W- 1GM premix 50 ML IV SCH (15:25)
[2024-11-05] MEDS: HYDROcodone/acetaminophen 10/325mg tab PO PRN (15:44)
[2024-11-05 17:08] LABS: BASOPHILS % (AUTO) 0.3 % (0-1); EOSINOPHILS # (AUTO) 0.1 X10'3 (0-0.9); EOSINOPHILS % (AUTO) 0.5 % (0-6); HEMATOCRIT 34.1 % (42.0-52.0); HEMOGLOBIN 11.5 g/dl (14.0-17.9); LYMPHOCYTES # (AUTO) 0.9 X10'3 (1.1-4.8); LYMPHOCYTES % (AUTO) 6.8 % (21-51); MEAN CORPUSCULAR HEMOGLOBIN 29.9 PG (27.0-31.0); MEAN CORPUSCULAR HGB CONC 33.8 g/dL (33.0-36.5); MEAN CORPUSCULAR VOLUME 88.5 FL (78-98); MEAN PLATELET VOLUME 8.8 FL (7.4-10.4); MONOCYTES # (AUTO) 1.3 X10'3 (0-0.9); MONOCYTES % (AUTO) 9.5 % (2-12); NEUTROPHILS # (AUTO) 11.1 X10'3 (1.8-7.7); NEUTROPHILS % (AUTO) 82.9 % (42-75); PLATELET COUNT 199 X10'3 (140-440); RED BLOOD COUNT 3.85 X10'6 (4.70-6.10); RED CELL DISTRIBUTION WIDTH 14.6 % (11.5-14.5); WHITE BLOOD COUNT 13.4 X10'3 (4.5-11.0)
[2024-11-05 17:33] LABS: ANION GAP 8 (8-16); BLOOD UREA NITROGEN 14 MG/DL (7-18); BUN/CREATININE RATIO 17.1 (10.0-20.0); CALCIUM 7.8 MG/DL (8.5-10.1); CHLORIDE 106 MMOL/L (99-107); CREATININE 0.82 MG/DL (0.60-1.10); GLUCOSE 141 MG/DL (70-104); MAGNESIUM 3.1 MG/DL (1.5-2.4); PHOSPHORUS 3.1 MG/DL (2.3-4.5); SODIUM 139 MMOL/L (135-145); TOTAL CARBON DIOXIDE 24.8 MMOL/L (24-32); eCRCL 70 ML/MIN; eGFR > 90 ML/MIN
[2024-11-05] MEDS: potassium Cl 20mEq/100mL bag 100 ML IV PRN (17:40)
[2024-11-05] MEDS: vancomycin/NS 1 GM ADD-VANTAGE 250 ML IV SCH (20:16)
[2024-11-05] MEDS: atorvastatin 10mg tablet PO SCH (20:16)
[2024-11-05] MEDS: mupirocin 2% nasal ointment 1gm UD NS SCH (20:16)
[2024-11-05] MEDS: sennosides/docusate sodium tablet PO SCH (20:19)
[2024-11-05] MEDS: morphine 2 MG/ML inj. syringe IV PRN (22:28)
[2024-11-06] VITALS (19 sets, daily range): BP systolic 96–150; BP diastolic 51–76; PULSE 58–77; RESP 8–27; TEMP 97.2–97.9; O2SAT 91–96
[2024-11-06 01:18] LABS: BASOPHILS # (AUTO) 0.1 X10'3 (0-0.2); BASOPHILS % (AUTO) 0.5 % (0-1); EOSINOPHILS % (AUTO) 0.1 % (0-6); HEMATOCRIT 32.5 % (42.0-52.0); HEMOGLOBIN 11.3 g/dl (14.0-17.9); LYMPHOCYTES # (AUTO) 1.1 X10'3 (1.1-4.8); LYMPHOCYTES % (AUTO) 9.9 % (21-51); MEAN CORPUSCULAR HEMOGLOBIN 30.6 PG (27.0-31.0); MEAN CORPUSCULAR HGB CONC 34.8 g/dL (33.0-36.5); MEAN CORPUSCULAR VOLUME 87.9 FL (78-98); MEAN PLATELET VOLUME 8.8 FL (7.4-10.4); MONOCYTES # (AUTO) 1.2 X10'3 (0-0.9); MONOCYTES % (AUTO) 10.6 % (2-12); NEUTROPHILS # (AUTO) 8.9 X10'3 (1.8-7.7); NEUTROPHILS % (AUTO) 78.9 % (42-75); PLATELET COUNT 189 X10'3 (140-440); RED CELL DISTRIBUTION WIDTH 14.4 % (11.5-14.5); WHITE BLOOD COUNT 11.3 X10'3 (4.5-11.0)
[2024-11-06 01:30] LABS: ALANINE AMINOTRANSFERASE 15 U/L (12-78); ALBUMIN 3.6 G/DL (3.4-5.0); ALBUMIN/GLOBULIN RATIO 1.9 (1.1-1.5); ALKALINE PHOSPHATASE 55 IU/L (46-116); ANION GAP 7 (8-16); ASPARTATE AMINO TRANSFERASE 21 U/L (10-37); BILIRUBIN,TOTAL 1.1 MG/DL (0.1-1.0); BLOOD UREA NITROGEN 12 MG/DL (7-18); BUN/CREATININE RATIO 13.3 (10.0-20.0); CALCIUM 7.5 MG/DL (8.5-10.1); CHLORIDE 104 MMOL/L (99-107); GLUCOSE 144 MG/DL (70-104); MAGNESIUM 2.3 MG/DL (1.5-2.4); PHOSPHORUS 2.2 MG/DL (2.3-4.5); POTASSIUM 4.3 MMOL/L (3.5-5.1); SODIUM 136 MMOL/L (135-145); TOTAL PROTEIN 5.5 G/DL (6.4-8.2); eCRCL 64 ML/MIN; eGFR 82 ML/MIN
[2024-11-06] MEDS: Neutra Phos packet PO PRN (02:15)
[2024-11-06] MEDS: HYDROcodone/acetaminophen 10/325mg tab PO PRN (04:33)
--- NOTE | 2024-11-06 06:00 | RADIOLOGY REPORT ---
EXAM: XR Chest, 1 View CLINICAL INDICATION: POST OP TECHNIQUE: Frontal view of the chest. COMPARISON: DI CHEST,SINGLE VIEW on DOS: 11/05/24 FINDINGS: LUNGS AND PLEURAL SPACES: Bibasilar atelectasis or pneumonia. Bilateral pleural effusions. HEART: Cardiomegaly with mild congestion. MEDIASTINUM: See below. BONES/JOINTS: Unremarkable. No acute fracture. TUBES, LINES AND DEVICES: Right IJ swan-Nasreen catheter distal tip in the mid mediastinum. Right int ernal jugular central venous catheter tip in the superior vena cava. OTHER FINDINGS: . . . . IMPRESSION: 1. Bibasilar atelectasis or pneumonia. 2. Cardiomegaly with mild congestion. 3. Bilateral pleural effusions.
--- NOTE | 2024-11-06 07:36 | PROGRESS NOTE ---
Progress Note CV Providers to CC ~ Antibiotics Ordered?: No Subjective Subjective S/P Redo CABG X 1 POD # 1. He is alert, extubated. Was quite sore initially but pain better controlled now. CI 2.2. Minimal CT output. Objective Vitals Vital Signs Date Time Temp Pulse Resp B/P (MAP) Pulse Ox O2 Delivery O2 Flow Rate FiO2 11/06/24 05:59 99.0 61 21 137/51 (79) 94 Nasal Cannula 4.0 11/05/24 15:00 50 Lab Results: 11/06/24 0100 11/06/24 0100 Objective Lungs - mildly diminished at bases Heart - RRR, SR Abd/extr - OK Incisions - CDI Coagulation Studies Laboratory Tests Test 11/05/24 08:53 11/05/24 09:49 11/05/24 10:55 Patient Sex (Coag) M Patient Height (Coag) 167cm Patient Weight (Coag) 80.0k KG Patient Blood Volume 5512 ML Pump Volume 1500 ML Total Blood Volume 7012 ML Projected Heparin Concentration 1.6 MG/KG Heparin [place] 154 Calculated Heparin Bolus 42709 UNITS Activated Coagulation Time Baseline 145 SEC (101-148) Activated Coag Time 1.70 U/mL 310 SEC (193-297) H Activated Coag Time 2.84 U/mL 507 SEC (260-420) H Heparin Level (COAG) 3.5 MG/KG Calculated Heparin Req (Hep Assay) 0 UNITS Calculated Protamine Req (Hep Assay 267 MG Activated Clotting Time 524 SEC (101-148) H Prothrombin Time 13.2 SECONDS (9.0-12.0) H INR International Normalized Ratio 1.3 INR Activated Partial Thromboplast Time 31 SECONDS (22-32) Coagulation Comments Cardiac Rhythm: Sinus Rhythm Problem\Assessment\Plan Additional Plan POD # 1 Excellent CI Mobilize To PCU. Sepsis Screening Reassessment Date: November 06, 2024 Supervising Co-signing Provider: LUZ Ramachandran November 06, 2024 07:36
[2024-11-06] MEDS ORDERED: potassium Cl 40MEQ/1/2NS 520ml 520 ML IV PRN (07:40)
[2024-11-06] MEDS ORDERED: potassium Cl 20 mEq SR tablet PO PRN (07:40)
[2024-11-06] MEDS ORDERED: potassium Cl 20mEq/100mL bag 100 ML IV PRN (07:40)
[2024-11-06] MEDS ORDERED: potassium CL 10mEq/100ml bag 100 ML IV PRN (07:40)
[2024-11-06] MEDS ORDERED: potassium Cl 40MEQ/270ML bag 250 ML IV PRN (07:40)
[2024-11-06] MEDS: metoprolol tartrate 12.5mg (1/2 tablet) PO SCH (08:00)
[2024-11-06] MEDS: magnesium Cl slow-release 64mg tablet PO SCH (09:27)
[2024-11-06] MEDS: aspirin 81mg tab.chew PO SCH (09:27)
[2024-11-06] MEDS: JUVEN Smoothie Arginine/Glut./Ca2+Bmb (Juven 19.3pkt) 240ml cup PO SCH (17:30)
[2024-11-07] VITALS (8 sets, daily range): BP systolic 104–141; BP diastolic 56–82; PULSE 63–76; RESP 18–24; TEMP 97.2–98.8; O2SAT 92–99
[2024-11-07 06:32] LABS: BASOPHILS # (AUTO) 0.1 X10'3 (0-0.2); BASOPHILS % (AUTO) 0.6 % (0-1); EOSINOPHILS # (AUTO) 0.3 X10'3 (0-0.9); HEMATOCRIT 36.9 % (42.0-52.0); HEMOGLOBIN 12.6 g/dl (14.0-17.9); LYMPHOCYTES # (AUTO) 1.6 X10'3 (1.1-4.8); LYMPHOCYTES % (AUTO) 13.9 % (21-51); MEAN CORPUSCULAR HEMOGLOBIN 30.4 PG (27.0-31.0); MEAN CORPUSCULAR HGB CONC 34.2 g/dL (33.0-36.5); MEAN CORPUSCULAR VOLUME 89.1 FL (78-98); MEAN PLATELET VOLUME 9.6 FL (7.4-10.4); MONOCYTES # (AUTO) 1.5 X10'3 (0-0.9); MONOCYTES % (AUTO) 12.9 % (2-12); NEUTROPHILS # (AUTO) 8.2 X10'3 (1.8-7.7); NEUTROPHILS % (AUTO) 69.6 % (42-75); PLATELET COUNT 193 X10'3 (140-440); RED BLOOD COUNT 4.14 X10'6 (4.70-6.10); RED CELL DISTRIBUTION WIDTH 14.9 % (11.5-14.5); WHITE BLOOD COUNT 11.7 X10'3 (4.5-11.0)
--- NOTE | 2024-11-07 06:35 | RADIOLOGY REPORT ---
EXAM: XR Chest, 1 View CLINICAL INDICATION: POST OP TECHNIQUE: Frontal view of the chest. COMPARISON: DI CHEST,SINGLE VIEW on DOS: 11/06/24, DI CHEST,SINGLE VIEW on DOS: 11/05/24 FINDINGS: LUNGS AND PLEURAL SPACES: Right basilar atelectasis or pneumonia. Right pleural effusion. No pneu mothorax. HEART: Unremarkable. No cardiomegaly. MEDIASTINUM: Unremarkable. Normal mediastinal contour. BONES/JOINTS: Unremarkable. No acute fracture. OTHER FINDINGS: . . . IMPRESSION: 1. Right basilar atelectasis or pneumonia. 2. Right pleural effusion.
[2024-11-07 06:48] LABS: ALBUMIN 3.6 G/DL (3.4-5.0); ANION GAP 5 (8-16); BLOOD UREA NITROGEN 11 MG/DL (7-18); BUN/CREATININE RATIO 14.1 (10.0-20.0); CALCIUM 8.5 MG/DL (8.5-10.1); CHLORIDE 102 MMOL/L (99-107); CREATININE 0.78 MG/DL (0.60-1.10); GLUCOSE 134 MG/DL (70-104); MAGNESIUM 1.7 MG/DL (1.5-2.4); POTASSIUM 4.4 MMOL/L (3.5-5.1); SODIUM 137 MMOL/L (135-145); TOTAL CARBON DIOXIDE 29.6 MMOL/L (24-32); eCRCL 74 ML/MIN; eGFR > 90 ML/MIN
[2024-11-07] MEDS: pantoprazole 40mg Tablet.DR PO SCH (07:31)
--- NOTE | 2024-11-07 13:50 | PROGRESS NOTE ---
Progress Note CV Providers to CC ~ Antibiotics Ordered?: No Subjective Subjective S/P Redo CABG x 1 POD # 2. Alert, ambulated well earlier. Feeling good overall. Objective Vitals Vital Signs Date Time Temp Pulse Resp B/P (MAP) Pulse Ox O2 Delivery O2 Flow Rate FiO2 11/07/24 08:00 19 99 Nasal Cannula 2.0 11/07/24 07:32 73 11/07/24 02:00 97.6 141/68 (92) 11/06/24 20:00 28 Lab Results: 11/07/24 0549 11/07/24 0549 Objective Lungs - fairly clear Heart - RRR, SR Abd/Extr - OK Incisions - CDI Coagulation Studies Laboratory Tests Test 11/05/24 08:53 11/05/24 09:49 11/05/24 10:55 Patient Sex (Coag) M Patient Height (Coag) 167cm Patient Weight (Coag) 80.0k KG Patient Blood Volume 5512 ML Pump Volume 1500 ML Total Blood Volume 7012 ML Projected Heparin Concentration 1.6 MG/KG Heparin [place] 154 Calculated Heparin Bolus 05599 UNITS Activated Coagulation Time Baseline 145 SEC (101-148) Activated Coag Time 1.70 U/mL 310 SEC (193-297) H Activated Coag Time 2.84 U/mL 507 SEC (260-420) H Heparin Level (COAG) 3.5 MG/KG Calculated Heparin Req (Hep Assay) 0 UNITS Calculated Protamine Req (Hep Assay 267 MG Activated Clotting Time 524 SEC (101-148) H Prothrombin Time 13.2 SECONDS (9.0-12.0) H INR International Normalized Ratio 1.3 INR Activated Partial Thromboplast Time 31 SECONDS (22-32) Coagulation Comments Cardiac Rhythm: Sinus Rhythm Problem\Assessment\Plan Additional Plan POD # [address] output minimal and serous DC drains and PW. Home soon. Sepsis Screening Reassessment Date: November 07, 2024 Supervising MD Co-signing Provider: LUZ Lopez November 07, 2024 13:50
[2024-11-08] VITALS (9 sets, daily range): BP systolic 112–140; BP diastolic 53–66; PULSE 63–89; RESP 16–19; TEMP 97–97.8; O2SAT 92–96
[2024-11-08 06:41] LABS: BASOPHILS # (AUTO) 0.1 X10'3 (0-0.2); BASOPHILS % (AUTO) 0.5 % (0-1); EOSINOPHILS # (AUTO) 0.9 X10'3 (0-0.9); EOSINOPHILS % (AUTO) 6.8 % (0-6); HEMATOCRIT 37.7 % (42.0-52.0); HEMOGLOBIN 12.8 g/dl (14.0-17.9); LYMPHOCYTES # (AUTO) 1.5 X10'3 (1.1-4.8); LYMPHOCYTES % (AUTO) 12.1 % (21-51); MEAN CORPUSCULAR HGB CONC 33.9 g/dL (33.0-36.5); MEAN CORPUSCULAR VOLUME 88.4 FL (78-98); MEAN PLATELET VOLUME 9.1 FL (7.4-10.4); MONOCYTES # (AUTO) 1.6 X10'3 (0-0.9); MONOCYTES % (AUTO) 12.5 % (2-12); NEUTROPHILS # (AUTO) 8.7 X10'3 (1.8-7.7); NEUTROPHILS % (AUTO) 68.1 % (42-75); PLATELET COUNT 218 X10'3 (140-440); RED BLOOD COUNT 4.26 X10'6 (4.70-6.10); RED CELL DISTRIBUTION WIDTH 14.8 % (11.5-14.5); WHITE BLOOD COUNT 12.8 X10'3 (4.5-11.0)
[2024-11-08 06:56] LABS: ALBUMIN 3.4 G/DL (3.4-5.0); ANION GAP 7 (8-16); BLOOD UREA NITROGEN 13 MG/DL (7-18); BUN/CREATININE RATIO 16.3 (10.0-20.0); CALCIUM 8.8 MG/DL (8.5-10.1); CHLORIDE 101 MMOL/L (99-107); GLUCOSE 109 MG/DL (70-104); MAGNESIUM 1.6 MG/DL (1.5-2.4); POTASSIUM 3.9 MMOL/L (3.5-5.1); SODIUM 136 MMOL/L (135-145); TOTAL CARBON DIOXIDE 27.9 MMOL/L (24-32); eCRCL 72 ML/MIN; eGFR > 90 ML/MIN
--- NOTE | 2024-11-08 07:22 | RADIOLOGY REPORT ---
EXAM: XR Chest, 1 View CLINICAL INDICATION: POST OP TECHNIQUE: Frontal view of the chest. COMPARISON: DI CHEST,SINGLE VIEW on DOS: 11/07/24, DI CHEST,SINGLE VIEW on DOS: 11/06/24, DI CHEST,SI NGLE VIEW on DOS: 11/05/24 FINDINGS: LUNGS AND PLEURAL SPACES: Bibasilar atelectasis or pneumonia. Bilateral pleural effusions. No pne umothorax. HEART: Unremarkable. No cardiomegaly. MEDIASTINUM: Unremarkable. Normal mediastinal contour. BONES/JOINTS: Unremarkable. No acute fracture. OTHER FINDINGS: . . IMPRESSION: 1. Bibasilar atelectasis or pneumonia. 2. Bilateral pleural effusions.
[2024-11-08] MEDS: magnesium hydroxide 30ml (MOM) UD suspension PO PRN (08:13)
--- NOTE | 2024-11-08 09:34 | PROGRESS NOTE ---
Progress Note CV Providers to CC ~ Antibiotics Ordered?: No Subjective Subjective S/P Redo CABG x 1 POD # 3. Doing well overall. He is on room air. No BM yet and feels a bit constipated. Wants to wait one more day prior to DC home. Objective Vitals Vital Signs Date Time Temp Pulse Resp B/P (MAP) Pulse Ox O2 Delivery O2 Flow Rate FiO2 11/08/24 07:52 75 18 93 Nasal Cannula* 1 24 11/08/24 02:00 97.0 129/61 (83) Lab Results: 11/08/24 0614 11/08/24 0614 Objective Lungs - clear Heart - RRR, SR Abd/Extr - OK Incisions - CDI Coagulation Studies Laboratory Tests Test 11/05/24 08:53 11/05/24 09:49 11/05/24 10:55 Patient Sex (Coag) M Patient Height (Coag) 167cm Patient Weight (Coag) 80.0k KG Patient Blood Volume 5512 ML Pump Volume 1500 ML Total Blood Volume 7012 ML Projected Heparin Concentration 1.6 MG/KG Heparin [place] 154 Calculated Heparin Bolus 28777 UNITS Activated Coagulation Time Baseline 145 SEC (101-148) Activated Coag Time 1.70 U/mL 310 SEC (193-297) H Activated Coag Time 2.84 U/mL 507 SEC (260-420) H Heparin Level (COAG) 3.5 MG/KG Calculated Heparin Req (Hep Assay) 0 UNITS Calculated Protamine Req (Hep Assay 267 MG Activated Clotting Time 524 SEC (101-148) H Prothrombin Time 13.2 SECONDS (9.0-12.0) H INR International Normalized Ratio 1.3 INR Activated Partial Thromboplast Time 31 SECONDS (22-32) Coagulation Comments Cardiac Rhythm: Sinus Rhythm Problem\Assessment\Plan Additional Plan POD # 3 SR CV stable Rx for BM Home in AM. Sepsis Screening Reassessment Date: November 08, 2024 Supervising MD Co-signing Provider: LUZ Lopez November 08, 2024 09:34
[2024-11-08] MEDS ORDERED: LOP12.5T PO (09:37)
[2024-11-08] MEDS ORDERED: ASPI81TA53 PO (09:37)
[2024-11-08] MEDS ORDERED: HYDR-3972 PO (09:37)
[2024-11-08] MEDS: magnesium citrate 296ml oral solution PO ONE (13:05)
[2024-11-08] MEDS: potassium Cl 20 mEq SR tablet PO PRN (17:17)
[2024-11-08] MEDS: magnesium sulf-water 2g/50mL 50 ML IV PRN (20:48)
[2024-11-08] MEDS: magnesium sulf-water 4G/100mL 100 ML IV PRN (22:55)
[2024-11-09 02:00] VITALS: BP 113/67; PULSE 67; RESP 20; TEMP 97.5; O2SAT 98
[2024-11-09 06:00] VITALS: BP 126/66; PULSE 61; RESP 18; TEMP 97.1; O2SAT 91
[2024-11-09 06:29] LABS: BASOPHILS # (AUTO) 0.1 X10'3 (0-0.2); EOSINOPHILS # (AUTO) 1.1 X10'3 (0-0.9); EOSINOPHILS % (AUTO) 9.3 % (0-6); HEMATOCRIT 38.5 % (42.0-52.0); HEMOGLOBIN 13.1 g/dl (14.0-17.9); LYMPHOCYTES % (AUTO) 16.5 % (21-51); MEAN CORPUSCULAR HEMOGLOBIN 30.1 PG (27.0-31.0); MEAN CORPUSCULAR HGB CONC 34.1 g/dL (33.0-36.5); MEAN CORPUSCULAR VOLUME 88.3 FL (78-98); MONOCYTES # (AUTO) 1.5 X10'3 (0-0.9); MONOCYTES % (AUTO) 12.9 % (2-12); NEUTROPHILS # (AUTO) 7.2 X10'3 (1.8-7.7); NEUTROPHILS % (AUTO) 60.3 % (42-75); PLATELET COUNT 263 X10'3 (140-440); RED BLOOD COUNT 4.36 X10'6 (4.70-6.10); WHITE BLOOD COUNT 11.9 X10'3 (4.5-11.0)
[2024-11-09 06:47] LABS: ALBUMIN 3.3 G/DL (3.4-5.0); ANION GAP 7 (8-16); BLOOD UREA NITROGEN 25 MG/DL (7-18); BUN/CREATININE RATIO 26.3 (10.0-20.0); CALCIUM 8.8 MG/DL (8.5-10.1); CHLORIDE 102 MMOL/L (99-107); CREATININE 0.95 MG/DL (0.60-1.10); GLUCOSE 108 MG/DL (70-104); MAGNESIUM 2.8 MG/DL (1.5-2.4); POTASSIUM 4.9 MMOL/L (3.5-5.1); SODIUM 140 MMOL/L (135-145); eCRCL 61 ML/MIN; eGFR 77 ML/MIN
[2024-11-09 08:00] VITALS: RESP 18; O2SAT 91
--- NOTE | 2024-11-09 08:19 | PROGRESS NOTE ---
Progress Note CV Providers to CC ~ Antibiotics Ordered?: No Subjective Subjective S/P Redo CABG x 1 POD # 4. + BM yesterday. Feels ready for home. is present and agrees. Meds reviewed. Objective Vitals Vital Signs Date Time Temp Pulse Resp B/P (MAP) Pulse Ox O2 Delivery O2 Flow Rate FiO2 11/09/24 02:00 97.5 67 20 113/67 (82) 98 Room Air 11/08/24 20:00 95 11/08/24 08:00 1 Lab Results: 11/09/24 0532 11/09/24 0532 Objective Lungs - clear Heart - RRR,SR Abd/extr - OK Incisions - CDI Coagulation Studies Laboratory Tests Test 11/05/24 08:53 11/05/24 09:49 11/05/24 10:55 Patient Sex (Coag) M Patient Height (Coag) 167cm Patient Weight (Coag) 80.0k KG Patient Blood Volume 5512 ML Pump Volume 1500 ML Total Blood Volume 7012 ML Projected Heparin Concentration 1.6 MG/KG Heparin [place] 154 Calculated Heparin Bolus 27580 UNITS Activated Coagulation Time Baseline 145 SEC (101-148) Activated Coag Time 1.70 U/mL 310 SEC (193-297) H Activated Coag Time 2.84 U/mL 507 SEC (260-420) H Heparin Level (COAG) 3.5 MG/KG Calculated Heparin Req (Hep Assay) 0 UNITS Calculated Protamine Req (Hep Assay 267 MG Activated Clotting Time 524 SEC (101-148) H Prothrombin Time 13.2 SECONDS (9.0-12.0) H INR International Normalized Ratio 1.3 INR Activated Partial Thromboplast Time 31 SECONDS (22-32) Coagulation Comments Cardiac Rhythm: Sinus Rhythm Problem\Assessment\Plan Additional Plan POD # 4 SR CV stable DC home. F/U 2 weeks. Sepsis Screening Reassessment Date: November 09, 2024 Supervising MD Co-signing Provider: LUZ Lopez November 09, 2024 08:19
[2024-11-09 08:23] VITALS: PULSE 74; RESP 18; O2SAT 92
[2024-11-09 09:16] VITALS: BP_SYST 126; PULSE 61
[2024-11-09 10:00] VITALS: RESP 18; O2SAT 91
--- NOTE | 2024-11-09 23:55 | DISCHARGE SUMMARY ---
DATE OF DISCHARGE: 11/09/2024 DICTATING PHYSICIAN: Russell Alvarez ADMITTING PHYSICIAN: Dr. David Jane. ADMITTING DIAGNOSIS: Coronary artery disease status post coronary artery bypass grafting x 2 back in 2008. DISCHARGE DIAGNOSES: Coronary artery disease status post coronary artery bypass grafting x 2 in 2009 along with status post redo coronary artery bypass graft surgery x 1. COMPLICATIONS: Postoperatively none. CONDITION ON DISCHARGE: Stable. PROGNOSIS: Good. SUMMARY: This is a very pleasant 74-year-old gentleman with a known history of coronary artery disease status post coronary artery bypass grafting x 2 in 2008, at which time he had a left internal mammary artery to the LAD and a vein graft to the distal RCA. He did very well following that procedure. 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 Doss's office, he was noted to have an abnormal stress test. This revealed the presence of an inferior wall ischemia with reversibility. Cardiac catheterization demonstrated occluded vein graft to the RCA. The RCA is heavily diseased but does have some collateralization. An attempt was made to stent the right, but unfortunately, a wire could not be passed. The patient saw Dr. Jane for evaluation. He was felt to be a good operative candidate and was taken to the operating room electively on 11/05/2024. Name of the operation is redo coronary artery bypass graft surgery x 1 with a right internal mammary artery to the distal RCA off pump along with transesophageal echocardiography. Following the operation, the patient was transferred to the CICU in stable condition. The following morning, he was awake, alert, and extubated, neurologically intact. He had an excellent CI of 2.2, minimal chest tube output. Initially, he was quite sore, but pain control improved. He was mobilized and transferred to the PCU on postop day #1. Postop day #2, his chest drains were removed. He had an H and H 12.6/36.9, creatinine 0.78. Yesterday, he had a bowel movement and today he feels ready for home. DISCHARGE PROGRAM: Followup appointment with Dr. Jane's office in two weeks. Followup appointment with Dr. Núñez in four weeks and with his primary physician in six weeks. ACTIVITY: As per cardiac rehab instructions. He is instructed to take short showers, to observe sterile precautions, no heavy lifting, no driving. DIET: Regular diet, transitioning to a heart-healthy diet as tolerated. MEDICATIONS: Include aspirin 81 mg p.o. daily, [place] 10/325 one p.o. q.6h. p.r.n. pain, Lopressor 12.5 mg p.o. b.i.d., Lipitor 80 mg p.o. daily, ezetimibe 10 mg p.o. daily. Russell Jane MD TID: [id number] RECEIPT: [id number] [facility] cc: Christelle Núñez MD
== END 2024-11-09 11:14 | disposition home or self-care (01) | DRG 236 ==
LOC: PAS IN 05:40 → CICU 2S 10:18 → PCU 3S 11-06 14:35
PROVIDERS: ADMIT Thoracic Surgery (Cardiothoracic Vascular Surgery); ATTEND Thoracic Surgery (Cardiothoracic Vascular Surgery)
PROC: B24BZZ4 Ultrasonography of Heart with Aorta, Transesophageal (ICD-10-PCS; 2024-11-05)
PROC: 02100Z8 Bypass Coronary Artery, One Artery from Right Internal Mammary, Open Approach (ICD-10-PCS; principal; 2024-11-05 08:13)
DX: I25.112 Atherosclerotic heart disease of native coronary artery with refractory angina pectoris (principal); K59.00 Constipation, unspecified; Z95.1 Presence of aortocoronary bypass graft
CPT/HCPCS: 36415; 36600; 71045; 71046; 80048; 80053; 81001; 82330; 82435; 82803; 82947; 82948; 83036; 83735; 84100; 84132; 84295; 85018; 85025; 85347; 85610; 85730; 86885; 86900; 86901; 86920; 87081; 93005; 93312; 93325; 93880; 93930; 93970; 94002; 94010; 94760; 97116; 97161; 97530; A4615; A4618; A6222; A6258; A6449; A7000; A7048; C1751; G0378; J0171; J0665; J0690; J1644; J1815; J2250; J2270; J2440; J2704; J2919; J3370; J3372; J3475; J3480; J3490; J7030; J7040; J7050; J7120; P9045